=== PATIENT | male | born 1945 | race Caucasian/White ===

== ENCOUNTER 2017-01-15 18:42 | Emergency (ER) | payer OTHER ==
[2017-01-15 21:01] LABS: BASOPHIL 0.1 % (0-2); EOSINOPHIL 1.5 % (0-7); HGB 12.7 g/dl (13.2-18.0); LYMPHOCYTE 13.2 % (15-48); MCHC 33.4 g/dL (32.0-36.0); MCV 89.8 fL (78.0-100.0); MONOCYTE 8.2 % (0-12); PLT 283 K/uL (150-400); RBC 4.23 M/uL (4.70-6.00); RDW 13.6 % (11.5-14.0); WBC 14.3 K/uL (4.0-10.5)
[2017-01-15 21:02] LABS: BILIRUBIN NEGATIVE (NEGATIVE); BLOOD 3+ Ery/uL (NEGATIVE); CLARITY SLIGHTLY HAZY (CLEAR); COLOR YELLOW (YELLOW); GLUCOSE (U) 2+ mg/dL (NORMAL); KETONE (U) TRACE mg/dL (NEGATIVE); LEUKOCYTES TRACE Leu/uL (NEGATIVE); NITRITE NEGATIVE (NEGATIVE); PROTEIN 2+ mg/dL (NEGATIVE); SPECIFIC GRAVITY 1.015 (1.001-1.030); pH 6.5 (5.0-9.0)
[2017-01-15 21:09] LABS: BACTERIA TRACE
[2017-01-15 21:13] LABS: ALBUMIN 4.7 g/dL (3.4-4.8); BILIRUBIN - TOTAL 0.7 mg/dL (0.1-1.0); GLOBULIN (CALCULATION) 2.4 g/dL (2.2-4.2); POTASSIUM 4.4 mmol/L (3.5-5.1); TOTAL PROTEIN 7.1 g/dL (6.4-8.3)
== END 2017-01-15 23:14 | disposition home or self-care (01) ==
LOC: FER 18:42
PROVIDERS: Emergency Medicine
DX: N13.2 Hydronephrosis with renal and ureteral calculous obstruction (principal); E11.9 Type 2 diabetes mellitus without complications; I10 Essential (primary) hypertension; Z88.8 Allergy status to other drugs, medicaments and biological substances; Z79.899 Other long term (current) drug therapy; Z79.84 Long term (current) use of oral hypoglycemic drugs
CPT/HCPCS: 36415; 80053; 81001; 82150; 83690; 85025; J1170; J2405; Q9967

== ENCOUNTER 2022-03-25 04:12 | Inpatient (IN) | payer OTHER ==
[~2022-03-25] VITALS: Ht 170.2 cm; Wt 86.7 kg
[~2022-03-25 04:12] MED LIST: ARTHRITIS PAIN100 GM TOP; HYDROCODON-ACE1 EAC6 PO; MELOXICAM15 MG PO; PREDNISONE 20MG20 MG PO; VICODIN 10/3251 EACH PO
[2022-03-25 04:27] LABS: BASOPHIL 0.2 % (0-2); EOSINOPHIL 0.6 % (0-7); HCT 37.9 % (42.0-52.0); HGB 12.4 g/dl (13.2-18.0); LYMPHOCYTE 6.1 % (15-48); MCHC 32.7 g/dL (32.0-36.0); MCV 94.8 fL (78.0-100.0); MONOCYTE 7.8 % (0-12); MPV 8.8 fL (6.0-9.5); NEUTROPHIL 84.6 % (41-80); NRBC 0; PLT 256 K/uL (150-400); RDW 13.6 % (11.5-14.0)
[2022-03-25 04:45] LABS: ALBUMIN 3.8 g/dL (3.4-5.0); BILIRUBIN - TOTAL 1.2 mg/dL (0.2-1.0); BUN/CREAT RATIO (CALC) 17.1 RATIO; CREATININE 0.82 mg/dL (0.67-1.17); GLOBULIN (CALCULATION) 3.4 g/dL; TOTAL PROTEIN 7.2 g/dL (6.4-8.2)
[2022-03-25 05:37] LABS: INFLUENZA A NAA NEGATIVE (NEGATIVE)
[2022-03-25 05:38] LABS: BILIRUBIN NEGATIVE (NEGATIVE); BLOOD TRACE-INTACT Ery/uL (NEGATIVE); CLARITY CLEAR (CLEAR); COLOR YELLOW (YELLOW); GLUCOSE (U) 3+ mg/dL (NORMAL); LEUKOCYTES NEGATIVE Leu/uL (NEGATIVE); NITRITE POSITIVE (NEGATIVE); PROTEIN 1+ mg/dL (NEGATIVE); SPECIFIC GRAVITY 1.015 (1.001-1.030); pH 6.5 (5.0-9.0)
[2022-03-25 05:42] LABS: CORONAVIRUS 2019 SARS-COV-2 POSITIVE (NEGATIVE)
[2022-03-25 05:59] LABS: BACTERIA 3+; URINARY RBC RARE
[2022-03-25 06:08] LABS: LACTIC ACID 1.3 mmol/L (0.4-1.9)
[2022-03-25] MEDS ORDERED: CEFTIN250 MG PO (07:12)
[2022-03-25] MEDS ORDERED: ONDANSETRON ODT4 MG PO (07:17)
[2022-03-25] MEDS ORDERED: PAXLOVID CO-PA1 EAC1 PO (07:17)
[2022-03-25] MEDS ORDERED: ONDANSETRON HCL4 MG PO (10:29)
[2022-03-25] MEDS ORDERED: METFORMIN HCL500 MG PO (10:30)
[2022-03-25] MEDS ORDERED: AMLODIPINE-OLM1 EAC1 PO (10:33)
[2022-03-25] MEDS ORDERED: LIPITOR40 MG PO (10:34)
[2022-03-25] MEDS ORDERED: COREG12.5 MG PO (10:34)
[2022-03-25] MEDS ORDERED: LAMICTAL100 MG PO (10:35)
[2022-03-25] MEDS ORDERED: EXELON1.5 MG PO (10:36)
[2022-03-25 11:21] LABS: IRON % SATURATION 8.3 %SAT (20-50)
[2022-03-25 11:49] LABS: LDH 177 U/L (85-227)
[2022-03-26 06:15] LABS: HCT 33.7 % (42.0-52.0); HGB 11.2 g/dl (13.2-18.0); MCH 31.4 pg (25.0-31.0); MCHC 33.2 g/dL (32.0-36.0); MCV 94.4 fL (78.0-100.0); MPV 8.8 fL (6.0-9.5); RBC 3.57 M/uL (4.70-6.00); RDW 13.1 % (11.5-14.0)
[2022-03-26 06:42] LABS: BILIRUBIN - DIRECT 0.2 mg/dL (0.00-0.20); BILIRUBIN - TOTAL 0.6 mg/dL (0.2-1.0); BUN/CREAT RATIO (CALC) 20.3 RATIO; CREATININE 0.69 mg/dL (0.67-1.17); GLOBULIN (CALCULATION) 3.5 g/dL; POTASSIUM 4.1 mmol/L (3.5-5.1); TOTAL PROTEIN 6.5 g/dL (6.4-8.2)
[2022-03-27 06:25] LABS: HCT 33.2 % (42.0-52.0); MCH 30.9 pg (25.0-31.0); MCHC 33.1 g/dL (32.0-36.0); MCV 93.3 fL (78.0-100.0); MPV 9.1 fL (6.0-9.5); RBC 3.56 M/uL (4.70-6.00); RDW 12.8 % (11.5-14.0)
[2022-03-27 06:55] LABS: ALBUMIN 2.9 g/dL (3.4-5.0); BILIRUBIN - TOTAL 0.3 mg/dL (0.2-1.0); BUN/CREAT RATIO (CALC) 27.8 RATIO; CREATININE 0.72 mg/dL (0.67-1.17); GLOBULIN (CALCULATION) 3.5 g/dL; POTASSIUM 4.2 mmol/L (3.5-5.1); TOTAL PROTEIN 6.4 g/dL (6.4-8.2)
[2022-03-28 06:31] LABS: HCT 33.6 % (42.0-52.0); HGB 11.2 g/dl (13.2-18.0); MCHC 33.3 g/dL (32.0-36.0); MCV 93.1 fL (78.0-100.0); MPV 8.8 fL (6.0-9.5); RBC 3.61 M/uL (4.70-6.00); RDW 12.9 % (11.5-14.0); WBC 14.2 K/uL (4.0-10.5)
--- NOTE | 2022-03-28 11:08 | NUR ---
PT LIVES AT HOME WITH SPOUSE, ALSO SON AND GRANDSON. IS NOT CURRENT WITH HH AND DENIES NEED FOR HH. HAS W[employer] AT HOME THAT HE USES WHEN NEEDED.
[2022-03-28] MEDS ORDERED: LEVAQUIN750 MG PO (11:12)
== END 2022-03-28 13:32 | disposition home or self-care (01) | DRG 871 ==
LOC: FER 04:12 → FMS 08:17
PROVIDERS: Emergency Medicine; Family Medicine; ADMIT Internal Medicine
PROC: 0T9B70Z Drainage of Bladder with Drainage Device, Via Natural or Artificial Opening (ICD-10-PCS; 2022-03-24)
PROC: 3E0DX3Z Introduction of Anti-inflammatory into Mouth and Pharynx, External Approach (ICD-10-PCS; principal; 2022-03-25)
PROC: XW033E5 Introduction of Remdesivir Anti-infective into Peripheral Vein, Percutaneous Approach, New Technology Group 5 (ICD-10-PCS; 2022-03-25)
PROC: 8E0ZXY6 Isolation (ICD-10-PCS; 2022-03-25)
PROC: 3E03329 Introduction of Other Anti-infective into Peripheral Vein, Percutaneous Approach (ICD-10-PCS; 2022-03-25)
DX: A41.52 Sepsis due to Pseudomonas (principal); G93.41 Metabolic encephalopathy; J96.01 Acute respiratory failure with hypoxia; U07.1 COVID-19; N30.00 Acute cystitis without hematuria; A41.89 Other specified sepsis; R65.20 Severe sepsis without septic shock; R33.9 Retention of urine, unspecified; D50.9 Iron deficiency anemia, unspecified; E11.9 Type 2 diabetes mellitus without complications; I10 Essential (primary) hypertension; E78.5 Hyperlipidemia, unspecified; N13.9 Obstructive and reflux uropathy, unspecified; K59.01 Slow transit constipation; Z90.79 Acquired absence of other genital organ(s); Z82.49 Family history of ischemic heart disease and other diseases of the circulatory system; Z83.3 Family history of diabetes mellitus; Z28.311 Partially vaccinated for COVID-19; Z85.828 Personal history of other malignant neoplasm of skin
CPT/HCPCS: 36415; 36600; 71045; 80048; 80053; 80076; 81001; 82607; 82803; 83010; 83036; 83540; 83550; 83605; 83615; 83690; 85025; 87040; 87088; 87186; 94010; 94640; 94760; 94762; 96374; 97116; 97162; 97166; 97530; C9399; G0378; J0692; J1650; J1815; J2916; J3370; J7030; J7050; J8540; U0002

== ENCOUNTER 2022-03-31 08:04 | Emergency (ER) | payer OTHER ==
[~2022-03-31 08:04] MED LIST changes: +AMLODIPINE-OLM1 EAC1 PO; +CEFTIN250 MG PO; +COREG12.5 MG PO; +EXELON1.5 MG PO; +LAMICTAL100 MG PO; +LEVAQUIN750 MG PO; +LIPITOR40 MG PO; +METFORMIN HCL500 MG PO; +ONDANSETRON HCL4 MG PO; +ONDANSETRON ODT4 MG PO; +PAXLOVID CO-PA1 EAC1 PO
[2022-03-31 08:52] LABS: BASOPHIL 0.4 % (0-2); EOSINOPHIL 3.6 % (0-7); HCT 35.2 % (42.0-52.0); HGB 11.6 g/dl (13.2-18.0); LYMPHOCYTE 14.5 % (15-48); MCH 31.1 pg (25.0-31.0); MCV 94.4 fL (78.0-100.0); MONOCYTE 8.8 % (0-12); MPV 8.6 fL (6.0-9.5); NEUTROPHIL 69.5 % (41-80); NRBC 0; PLT 288 K/uL (150-400); RBC 3.73 M/uL (4.70-6.00); RDW 13.5 % (11.5-14.0); WBC 13.2 K/uL (4.0-10.5)
[2022-03-31 08:56] LABS: INR 1.01 (0.9-1.2); PTT 37.5 SECONDS (24.9-34.6)
[2022-03-31 09:01] LABS: BUN/CREAT RATIO (CALC) 14.9 RATIO; C-REACTIVE PROTEIN 4.4 mg/dL (<=0.90); CREATININE 0.67 mg/dL (0.67-1.17); POTASSIUM 4.2 mmol/L (3.5-5.1)
[2022-03-31] MEDS ORDERED: ELIQUIS5 MG PO (09:56)
== END 2022-03-31 10:12 | disposition home or self-care (01) ==
LOC: FER 08:04
PROVIDERS: Emergency Medicine
DX: I82.612 Acute embolism and thrombosis of superficial veins of left upper extremity (principal); E11.9 Type 2 diabetes mellitus without complications; Z79.84 Long term (current) use of oral hypoglycemic drugs; Z88.8 Allergy status to other drugs, medicaments and biological substances
CPT/HCPCS: 36415; 80048; 85025; 85610; 85730; 86140; 93971; J1885